=== PATIENT | female | born 1990 | race American Indian/Alaskan Native ===

== ENCOUNTER 2019-01-16 07:47 | Emergency (ER) | payer MEDICAID ==
[2019-01-16 08:00] VITALS: BP 122/60
--- NOTE | 2019-01-16 08:28 | Emergency Department Report ---
ED Female HPI - General Chief complaint: Urogenital-Female Stated complaint: POSSIBLE YEAST INFECTION Time Seen by Provider: 01/16/19 08:16 Source: patient, RN notes reviewed, old records reviewed Mode of arrival: Ambulatory Limitations: No Limitations - History of Present Illness Initial comments: This is a 28-year-old female. This patient is not known to this provider previously. She does not know if she is . She presents to the ER with a complaint of a few days vaginal discharge, itching and odor. She also endorses nausea but no vomiting. She has no physical pain. She reports 2 sexual partners in the past 6 months, one with condoms, 1 without condoms. In her best recollection, she's not had a sexually transmitted disease. She reports that she feels that she has a discharge, and that her undergarments have a strange discharge on them. MD Complaint: vaginal discharge -: Gradual Severity: mild Quality: other (itching) Consistency: constant Improves with: none Worsens with: none Associated Symptoms: vaginal discharge - Related Data Sexually active: Yes Home Medications Medication Instructions Recorded Confirmed Last Taken Pnv with Ca,No.72/Iron/FA 1 tab PO QDAY 07/14/14 07/14/14 07/11/14 [ Plus Tablet] 1 tablet Previous Rx's Medication Instructions Recorded Last Taken Type Metoclopramide [Reglan] 10 mg PO BID PRN #20 tab 07/08/18 Unknown Rx Nitrofurantoin [place]/M-Cryst 100 mg PO Q12HR #14 capsule 07/08/18 Unknown Rx [Macrobid CAP] 21/Iron Fu/Folic Acid 1 each PO DAILY #30 tablet 07/08/18 Unknown Rx [ Complete Caplet] Doxylamine Succinate/Vit B6 1 each PO QHS PRN #30 tablet. 01/16/19 Unknown Rx [Kirstie Dickerson 10-10 mg Tablet] Tania Root [Tania] 250 mg PO QID PRN #30 capsule 01/16/19 Unknown Rx Vit-Fe Fumar-FA [ 1 tab PO QDAY #30 tablet 01/16/19 Unknown Rx Vitamin] Allergies Allergy/AdvReac Type Severity Reaction Status Date / Time No Known Allergies Allergy Verified 07/08/18 09:44 ED Review of Systems ROS: Stated complaint: POSSIBLE YEAST INFECTION Other details as noted in HPI Constitutional: denies: fever Eyes: denies: eye discharge ENT: denies: congestion Respiratory: denies: wheezing Cardiovascular: denies: syncope Gastrointestinal: nausea Genitourinary: discharge. denies: urgency, dysuria, frequency, hematuria Musculoskeletal: denies: back pain Skin: denies: lesions Neurological: denies: weakness Hematological/Lymphatic: denies: easy bleeding ED Past Medical Hx - Past Medical History Previous Medical History?: No Hx Hypertension: No Hx Congestive Heart Failure: No Hx Diabetes: No Hx Deep Vein Thrombosis: No Hx Renal Disease: No Hx Sickle Cell Disease: No Hx Seizures: No Hx Asthma: No Hx COPD: No Hx HIV: No - Surgical History Past Surgical History?: No - Social History Smoking Status: Never Smoker Substance Use Type: None - Medications Home Medications: Home Medications Medication Instructions Recorded Confirmed Last Taken Type Pnv with Ca,No.72/Iron/FA 1 tab PO QDAY 07/14/14 07/14/14 07/11/14 History [ Plus Tablet] 1 tablet Metoclopramide [Reglan] 10 mg PO BID PRN #20 tab 07/08/18 Unknown Rx Nitrofurantoin [place]/M-Cryst 100 mg PO Q12HR #14 capsule 07/08/18 Unknown Rx [Macrobid CAP] 21/Iron Fu/Folic Acid 1 each PO DAILY #30 tablet 07/08/18 Unknown Rx [ Complete Caplet] Doxylamine Succinate/Vit B6 1 each PO QHS PRN #30 tablet. 01/16/19 Unknown Rx [Dicmarry Dickerson 10-10 mg Tablet] Tania Root [Tania] 250 mg PO QID PRN #30 capsule 01/16/19 Unknown Rx Vit-Fe Fumar-FA [ 1 tab PO QDAY #30 tablet 01/16/19 Unknown Rx Vitamin] ED Physical Exam - General Limitations: No Limitations General appearance: alert, in no apparent distress - Head Head exam: Present: atraumatic, normocephalic - Eye Eye exam: Present: normal appearance, EOMI. Absent: nystagmus - ENT ENT exam: Present: normal exam, normal orophraynx, mucous membranes moist, normal external ear exam - Neck Neck exam: Present: normal inspection, full ROM. Absent: tenderness, meningismus - Respiratory Respiratory exam: Present: normal lung sounds bilaterally. Absent: respiratory distress - Cardiovascular Cardiovascular Exam: Present: regular rate, normal rhythm, normal heart sounds. Absent: bradycardia, tachycardia, irregular rhythm, systolic murmur, diastolic murmur, rubs, gallop - GI/Abdominal GI/Abdominal exam: Present: soft. Absent: distended, tenderness, guarding, rebound, rigid, pulsatile mass - External exam: Present: normal external exam, other (chaperoned by ELIUD DORMAN) Speculum exam: Present: vaginal discharge, cervical discharge. Absent: erythema, tissue, laceration - Extremities Exam Extremities exam: Present: normal inspection, full ROM. Absent: pedal edema, joint swelling, calf tenderness - Back Exam Back exam: Present: normal inspection, full ROM. Absent: tenderness, CVA tenderness (R), CVA tenderness (L), paraspinal tenderness, vertebral tenderness - Neurological Exam Neurological exam: Present: alert, oriented X3, normal gait, other (there is no facial droop. The tongue is midline. Extraocular movements are intact bilaterally. Patient speaking in full complete sentences. Shoulder shrug is intact bilaterally. Hearing is grossly intact bilaterally. Visual acuity intact to finger counting and color perception at a close distance. 5/5 strength 4 extremities. Sensation intact to light touch in 4 extremities.). Absent: motor sensory deficit - Psychiatric Psychiatric exam: Present: normal affect, normal mood - Skin Skin exam: Present: warm, dry, intact, normal color. Absent: rash ED Course Vital Signs 01/16/19 07:57 Temperature 98.0 F Pulse Rate 67 Respiratory 16 Rate Blood Pressure 122/60 O2 Sat by Pulse 100 Oximetry - Reevaluation(s) Reevaluation #1: 01/16/19 09:32 Differential diagnosis, including but not limited to: Vaginitis, sexually transmitted infection, incidental Assessment and plan: 28-year-old female with primary complaint of copious vaginal discharge. On examination, there is copious green yellow vaginal discharge, suspicious for trichomoniasis. She has no abdominal pain, and no abdominal tenderness, however, screening urinalysis shows a positive test, therefore, confirmatory serologic testing will be obtained, in addition to a gynecologic ultrasound. We'll reassess after her data points have resulted. Reevaluation #2: 01/16/19 11:37 Ultrasound confirms early intrauterine , possibly twin gestation . Wet prep confirms trichomoniasis as suspected. Patient medicated empirically with azithromycin, ceftriaxone, and metronidazole. Patient counseled about significance of findings. She states that she will follow up with an [facility] doctor. ED Medical Decision Making - Lab Data Result diagrams: 01/16/19 09:40 Vital Signs 01/16/19 07:57 Temperature 98.0 F Pulse Rate 67 Respiratory 16 Rate Blood Pressure 122/60 O2 Sat by Pulse 100 Oximetry Lab Results 01/16/19 Range/Units 08:41 Urine Color Yellow (Yellow) Urine Turbidity Cloudy (Clear) Urine pH 5.0 (5.0-7.0) Ur Specific [place] 1.032 H (1.003-1.030) Urine Protein 30 mg/dl (Negative) mg/dL Urine Glucose (UA) Neg (Negative) mg/dL Urine Ketones Neg (Negative) mg/dL Urine Blood Sm (Negative) Urine Nitrite Neg (Negative) Urine Bilirubin Neg (Negative) Urine Urobilinogen 2.0 (<2.0) mg/dL Ur Leukocyte Esterase Lg (Negative) Urine WBC (Auto) 122.0 H (0.0-6.0) /HPF Urine RBC (Auto) 66.0 (0.0-6.0) /HPF U Epithel Cells (Auto) 12.0 (0-13.0) /HPF Urine Mucus 3+ /HPF Urine HCG, Qual Positive A (Negative) Vital Signs 01/16/19 07:57 Temperature 98.0 F Pulse Rate 67 Respiratory 16 Rate Blood Pressure 122/60 O2 Sat by Pulse 100 Oximetry Lab Results 01/16/19 01/16/19 01/16/19 Range/Units 08:41 09:40 09:40 WBC 6.9 (4.5-11.0) K/mm3 RBC 4.52 (3.65-5.03) M/mm3 Hgb 13.5 (10.1-14.3) gm/dl Hct 40.8 (30.3-42.9) % MCV 90 (79-97) fl MCH 30 (28-32) pg MCHC 33 (30-34) % RDW 14.2 (13.2-15.2) % Plt Count 249 (140-440) K/mm3 HCG, Quant 1412 H (0-4) mIU/mL Urine Color Yellow (Yellow) Urine Turbidity Cloudy (Clear) Urine pH 5.0 (5.0-7.0) Ur Specific [place] 1.032 H (1.003-1.030) Urine Protein 30 mg/dl (Negative) mg/dL Urine Glucose (UA) Neg (Negative) mg/dL Urine Ketones Neg (Negative) mg/dL Urine Blood Sm (Negative) Urine Nitrite Neg (Negative) Urine Bilirubin Neg (Negative) Urine Urobilinogen 2.0 (<2.0) mg/dL Ur Leukocyte Esterase Lg (Negative) Urine WBC (Auto) 122.0 H (0.0-6.0) /HPF Urine RBC (Auto) 66.0 (0.0-6.0) /HPF U Epithel Cells (Auto) 12.0 (0-13.0) /HPF Urine Mucus 3+ /HPF Urine HCG, Qual Positive A (Negative) Blood Type 01/16/19 Range/Units 09:40 WBC (4.5-11.0) K/mm3 RBC (3.65-5.03) M/mm3 Hgb (10.1-14.3) gm/dl Hct (30.3-42.9) % MCV (79-97) fl MCH (28-32) pg MCHC (30-34) % RDW (13.2-15.2) % Plt Count (140-440) K/mm3 HCG, Quant (0-4) mIU/mL Urine Color (Yellow) Urine Turbidity (Clear) Urine pH (5.0-7.0) Ur Specific [place] (1.003-1.030) Urine Protein (Negative) mg/dL Urine Glucose (UA) (Negative) mg/dL Urine Ketones (Negative) mg/dL Urine Blood (Negative) Urine Nitrite (Negative) Urine Bilirubin (Negative) Urine Urobilinogen (<2.0) mg/dL Ur Leukocyte Esterase (Negative) Urine WBC (Auto) (0.0-6.0) /HPF Urine RBC (Auto) (0.0-6.0) /HPF U Epithel Cells (Auto) (0-13.0) /HPF Urine Mucus /HPF Urine HCG, Qual (Negative) Blood Type O POSITIVE - Radiology Data Radiology results: pending, report reviewed, image reviewed Print Report Referring Physician: DORA BOWDEN Patient Name: MONIQUE LAMBERT Date of : 1990 Sex: Female Report Date: 2019-01-16 Report Status: Finalized Findings [facility] [address] [place] [address] Ultrasound Report Signed Patient: MONIQUE LAMBERT MR#: [id number] : 1990 Acct:[id number] Age/Sex: 28 / F ADM Date: 01/16/19 Loc: ED Attending Dr: Ordering Physician: DORA BOWDEN MD Date of Service: 01/16/19 Procedure(s): US OB <= 14 weeks fetus Accession Number(s): [id number] cc: DORA BOWDEN MD OB ultrasound FINDINGS: Endometrial stripe is thickened at 2 cm. There are 2 very small fluid collections within the endometrial cavity measuring 3 and 4 mm. These could be early gestational sacs. No yolk sac or pole yet seen. Left ovary is normal. Right ovary contains a 2.3 cm complex cyst. No free fluid. Signer Name: Ricky Moore MD Signed: 01/16/2019 11:24 AM Workstation Name: [id number] Transcribed By: DONNA Dictated By: Ricky Moore MD Electronically Authenticated By: Ricky Moore MD Signed Date/Time: 01/16/19 1124 Critical care attestation.: If time is entered above; I have spent that time in minutes in the direct care of this critically ill patient, excluding procedure time. ED Disposition Clinical Impression: Trichomonal vaginitis Qualifiers: Weeks of gestation: less than 8 weeks Qualified Code(s): Z3A.01 - Less than 8 weeks gestation of Disposition: DC-01 TO HOME OR SELFCARE Is pt being admited?: No Does the pt Need Aspirin: No Condition: Stable Instructions: (ED), Trichomoniasis (ED) Additional Instructions: Patient found to have vaginal trichomoniasis, which is a sexually transmitted disease. Do not consume alcohol, smoke cigarettes, and avoid secondhand exposure to tobacco, and smoke products. Cultures were sent today, and results will be available next 3-5 days. Please have your primary care doctor call the medical records department to obtain your culture results. I recommend outpatient testing for sexually transmitted diseases, including hepatitis, syphilis and HIV. I also recommend that you abstain from sexual activity until you have completed her antibiotic therapy, a physician states that it is safe for you to resume sexual activity, and any partners that you have been sexually active with have been tested/treated/evaluated for sexual transmitted diseases. Please follow-up with physician within 3-5 days. I recommend that you return to the ER right away with worsening pain, migration of pain, intractable nausea/vomiting, inability tolerate liquid feeds. Follow-up with an outpatient [facility] doctor as soon as possible to initiate outpatient care. Prescriptions: Doxylamine Succinate/Vit B6 [Kirstie Dickerson 10-10 mg Tablet] 1 each PO QHS PRN #30 tablet. PRN Reason: Nausea Tania Root [Tania] 250 mg PO QID PRN #30 capsule PRN Reason: Nausea Vit-Fe Fumar-FA [ Vitamin] 1 tab PO QDAY #30 tablet Referrals: [facility] [Provider Group] - 3-5 Days [facility] [Provider Group] - 3-5 Days [facility] [Provider Group] - 3-5 Days
[2019-01-16 09:05] LABS: Bilirubin,Urine NEG (Negative); Blood,Urine SM (Negative); Color,Urine Yellow (Yellow); Mucus,Urine 3+ /HPF
[2019-01-16 09:07] LABS: HCG Qualitative,Urine Positive (Negative)
[2019-01-16 09:57] LABS: Hematocrit 40.8 % (30.3-42.9); Hemoglobin 13.5 gm/dl (10.1-14.3); Mean Corpuscular HGB Conc 33 % (30-34); Mean Corpuscular Volume 90 fl (79-97); Platelet Count 249 K/mm3 (140-440); Red Blood Count 4.52 M/mm3 (3.65-5.03); Red Cell Distribution Width 14.2 % (13.2-15.2)
[2019-01-16] MEDS ORDERED: LIDOCAINE-MPF (1%) 10 MG/1 ML VIAL 5 ML INFILTRATI ONE (10:32)
[2019-01-16] MEDS ORDERED: metroNIDAZOLE 500 MG TAB PO STA (10:32)
[2019-01-16] MEDS ORDERED: AZITHROMYCIN 1 GM ORAL PWDR PACKET PO ONE (10:32)
[2019-01-16] MEDS ORDERED: ONDANSETRON 4 MG ODT TAB PO ONE (10:32)
--- NOTE | 2019-01-16 11:28 | Ultrasound Report ---
OB ultrasound FINDINGS: Endometrial stripe is thickened at 2 cm. There are 2 very small fluid collections within th e endometrial cavity measuring 3 and 4 mm. These could be early gestational sacs. No yolk sac or feta l pole yet seen. Left ovary is normal. Right ovary contains a 2.3 cm complex cyst. No free fluid. Signer Name: Ricky Moore MD Signed: 01/16/2019 11:24 AM Workstation Name: [id number]
--- NOTE | 2019-01-16 11:28 | Ultrasound Report ---
See prior report Signer Name: Ricky Moore MD Signed: 01/16/2019 11:24 AM Workstation Name: [id number]
== END 2019-01-16 11:53 | disposition home or self-care (01) ==
LOC: ED 07:47
DX: O98.311 Other infections with a predominantly sexual mode of transmission complicating pregnancy, first trimester (principal); Z3A.01 Less than 8 weeks gestation of pregnancy; Z79.899 Other long term (current) drug therapy
CPT/HCPCS: 36415; 76801; 76817; 81001; 81025; 84702; 85027; 86850; 86900; 86901; 87210; 87591; 96372; 99284; J0696; Q0162

== ENCOUNTER 2019-01-23 18:00 | Emergency (ER) | payer MEDICAID ==
[2019-01-23 18:09] VITALS: BP 108/60
--- NOTE | 2019-01-23 18:38 | Event Note ---
ED Screening Note ED Screening Note: pt is 5 weeks states she is having vaginal bleeding began 1 hour ago she does not have a [facility]OF[facility] abd cramping /P:2/A:1 This initial assessment/diagnostic orders/clinical plan/treatment(s) is/are subject to change based on patients health status, clinical progression and re- assessment by fellow clinical providers in the ED. Further treatment and workup at subsequent clinical providers discretion. Patient/guardian urged not to elope from the ED as their condition may be serious if not clinically assessed and managed. Initial orders include: labs, UA, OB US
[2019-01-23 19:51] LABS: Bilirubin,Urine NEG (Negative); Blood,Urine LG (Negative); Color,Urine Yellow (Yellow); Mucus,Urine 3+ /HPF
[2019-01-23 19:53] LABS: RBC,Urine > 182.0 /HPF (0.0-6.0)
--- NOTE | 2019-01-23 20:06 | Ultrasound Report ---
ULTRASOUND OBSTETRIC INDICATION: vaginal bleeding, 5 weeks . TECHNIQUE: Transabdominal and Transvaginal. COMPARISON: OB ultrasound from 01/16/2019. FINDINGS: The uterus is normal in size and appearance, measuring 8.1 x 4.1 x 4.3 cm with an endometrial thickne ss of 12 mm. No intrauterine is identified. The right ovary measures 2.8 x 1.8 x 2.1 cm and appears unremarkable with expected color flow. The le ft ovary is not seen. No distinct ectopic is identified. No free fluid is seen. IMPRESSION: No sonographic evidence of an intrauterine or ectopic . Signer Name: Nilesh Eldridge MD Signed: 01/23/2019 8:02 PM Workstation Name: [id number]
[2019-01-23 20:22] LABS: Basophils % (Auto) 0.2 % (0.0-1.8); Hematocrit 38.5 % (30.3-42.9); Hemoglobin 12.7 gm/dl (10.1-14.3); Lymphocytes % (Auto) 8.7 % (13.4-35.0); Mean Corpuscular HGB Conc 33 % (30-34); Mean Corpuscular Volume 89 fl (79-97); Monocytes # (Auto) 0.4 K/mm3 (0.0-0.8); Monocytes % (Auto) 3.1 % (0.0-7.3); Platelet Count 263 K/mm3 (140-440); Red Blood Count 4.31 M/mm3 (3.65-5.03); Red Cell Distribution Width 14.3 % (13.2-15.2)
--- NOTE | 2019-01-23 20:38 | Emergency Department Report ---
ED General Adult HPI - General Chief complaint: Vaginal Bleeding Stated complaint: 5 WKS W/BLEEDING Time Seen by Provider: 01/23/19 18:36 Source: patient Mode of arrival: Ambulatory Limitations: No Limitations - History of Present Illness Initial comments: 29-year-old -Maced[place] female patient complains of sudden onset of vaginal bleeding and lower abdominal cramping this morning. She states she is about 5 weeks , however has not seen an [facility] to this point. She is . She denies any urinary symptoms. She states she has gone through about 4 pads today, but the bleeding has significantly slowed over the past few hours. She rates her pain as a 3/10 in severity and describes it as a cramping type pain. She has history of one prior miscarriage. Denies any nausea/vomiting, vaginal discharge, stool changes, fever, or other complaints/concerns. -: Sudden Worsens with: none Associated Symptoms: denies other symptoms - Related Data Home Medications Medication Instructions Recorded Confirmed Last Taken Pnv with Ca,No.72/Iron/FA 1 tab PO QDAY 07/14/14 07/14/14 07/11/14 [ Plus Tablet] 1 tablet Previous Rx's Medication Instructions Recorded Last Taken Type Metoclopramide [Reglan] 10 mg PO BID PRN #20 tab 07/08/18 Unknown Rx Nitrofurantoin [place]/M-Cryst 100 mg PO Q12HR #14 capsule 07/08/18 Unknown Rx [Macrobid CAP] 21/Iron Fu/Folic Acid 1 each PO DAILY #30 tablet 07/08/18 Unknown Rx [ Complete Caplet] Doxylamine Succinate/Vit B6 1 each PO QHS PRN #30 tablet. 01/16/19 Unknown Rx [Kirstie Dickerson 10-10 mg Tablet] Tania Root [Tania] 250 mg PO QID PRN #30 capsule 01/16/19 Unknown Rx Vit-Fe Fumar-FA [ 1 tab PO QDAY #30 tablet 01/16/19 Unknown Rx Vitamin] Allergies Allergy/AdvReac Type Severity Reaction Status Date / Time No Known Allergies Allergy Verified 07/08/18 09:44 ED Review of Systems ROS: Stated complaint: 5 WKS W/BLEEDING Other details as noted in HPI Comment: All other systems reviewed and negative Gastrointestinal: as per HPI Genitourinary: as per HPI ED Past Medical Hx - Past Medical History Hx Hypertension: No Hx Congestive Heart Failure: No Hx Diabetes: No Hx Deep Vein Thrombosis: No Hx Renal Disease: No Hx Sickle Cell Disease: No Hx Seizures: No Hx Asthma: No Hx COPD: No Hx HIV: No - Surgical History Past Surgical History?: No - Social History Smoking Status: Former Smoker Substance Use Type: Marijuana - Medications Home Medications: Home Medications Medication Instructions Recorded Confirmed Last Taken Type Pnv with Ca,No.72/Iron/FA 1 tab PO QDAY 07/14/14 07/14/14 07/11/14 History [ Plus Tablet] 1 tablet Metoclopramide [Reglan] 10 mg PO BID PRN #20 tab 07/08/18 Unknown Rx Nitrofurantoin [place]/M-Cryst 100 mg PO Q12HR #14 capsule 07/08/18 Unknown Rx [Macrobid CAP] 21/Iron Fu/Folic Acid 1 each PO DAILY #30 tablet 07/08/18 Unknown Rx [ Complete Caplet] Doxylamine Succinate/Vit B6 1 each PO QHS PRN #30 tablet. 01/16/19 Unknown Rx [Diclegis Dr 10-10 mg Tablet] Tania Root [Tania] 250 mg PO QID PRN #30 capsule 01/16/19 Unknown Rx Vit-Fe Fumar-FA [ 1 tab PO QDAY #30 tablet 01/16/19 Unknown Rx Vitamin] ED Physical Exam - General Limitations: No Limitations General appearance: alert, in no apparent distress - Head Head exam: Present: atraumatic, normocephalic - Eye Eye exam: Present: normal appearance - ENT ENT exam: Present: mucous membranes moist - Neck Neck exam: Present: normal inspection - Respiratory Respiratory exam: Present: normal lung sounds bilaterally, respiratory distress - Cardiovascular Cardiovascular Exam: Present: regular rate, normal rhythm - GI/Abdominal GI/Abdominal exam: Present: soft, normal bowel sounds. Absent: distended, tenderness, guarding, rigid - Extremities Exam Extremities exam: Present: normal inspection - Neurological Exam Neurological exam: Present: alert, oriented X3 - Psychiatric Psychiatric exam: Present: normal affect, normal mood - Skin Skin exam: Present: warm, dry, intact, normal color. Absent: rash ED Course Vital Signs 01/23/19 18:06 Temperature 98.7 F Pulse Rate 87 Respiratory 19 Rate Blood Pressure 108/60 O2 Sat by Pulse 97 Oximetry ED Medical Decision Making - Lab Data Result diagrams: 01/23/19 20:05 Lab Results 01/23/19 01/23/19 01/23/19 Range/Units 19:38 20:05 20:05 WBC 11.6 H (4.5-11.0) K/mm3 RBC 4.31 (3.65-5.03) M/mm3 Hgb 12.7 (10.1-14.3) gm/dl Hct 38.5 (30.3-42.9) % MCV 89 (79-97) fl MCH 30 (28-32) pg MCHC 33 (30-34) % RDW 14.3 (13.2-15.2) % Plt Count 263 (140-440) K/mm3 Lymph % (Auto) 8.7 L (13.4-35.0) % [place] % (Auto) 3.1 (0.0-7.3) % Eos % (Auto) 0.0 (0.0-4.3) % Baso % (Auto) 0.2 (0.0-1.8) % Lymph # 1.0 L (1.2-5.4) K/mm3 [place] # 0.4 (0.0-0.8) K/mm3 Eos # 0.0 (0.0-0.4) K/mm3 Baso # 0.0 (0.0-0.1) K/mm3 Seg Neutrophils % 88.0 H (40.0-70.0) % Seg Neutrophils # 10.2 H (1.8-7.7) K/mm3 HCG, Quant 2460 H (0-4) mIU/mL Urine Color Yellow (Yellow) Urine Turbidity Cloudy (Clear) Urine pH 6.0 (5.0-7.0) Ur Specific [place] 1.029 (1.003-1.030) Urine Protein 30 mg/dl (Negative) mg/dL Urine Glucose (UA) Neg (Negative) mg/dL Urine Ketones Tr (Negative) mg/dL Urine Blood Lg (Negative) Urine Nitrite Neg (Negative) Urine Bilirubin Neg (Negative) Urine Urobilinogen 4.0 (<2.0) mg/dL Ur Leukocyte Esterase Neg (Negative) Urine WBC (Auto) 8.0 H (0.0-6.0) /HPF Urine RBC (Auto) > 182.0 (0.0-6.0) /HPF U Epithel Cells (Auto) 5.0 (0-13.0) /HPF Urine Mucus 3+ /HPF Blood Type 01/23/19 Range/Units 20:05 WBC (4.5-11.0) K/mm3 RBC (3.65-5.03) M/mm3 Hgb (10.1-14.3) gm/dl Hct (30.3-42.9) % MCV (79-97) fl MCH (28-32) pg MCHC (30-34) % RDW (13.2-15.2) % Plt Count (140-440) K/mm3 Lymph % (Auto) (13.4-35.0) % [place] % (Auto) (0.0-7.3) % Eos % (Auto) (0.0-4.3) % Baso % (Auto) (0.0-1.8) % Lymph # (1.2-5.4) K/mm3 [place] # (0.0-0.8) K/mm3 Eos # (0.0-0.4) K/mm3 Baso # (0.0-0.1) K/mm3 Seg Neutrophils % (40.0-70.0) % Seg Neutrophils # (1.8-7.7) K/mm3 HCG, Quant (0-4) mIU/mL Urine Color (Yellow) Urine Turbidity (Clear) Urine pH (5.0-7.0) Ur Specific [place] (1.003-1.030) Urine Protein (Negative) mg/dL Urine Glucose (UA) (Negative) mg/dL Urine Ketones (Negative) mg/dL Urine Blood (Negative) Urine Nitrite (Negative) Urine Bilirubin (Negative) Urine Urobilinogen (<2.0) mg/dL Ur Leukocyte Esterase (Negative) Urine WBC (Auto) (0.0-6.0) /HPF Urine RBC (Auto) (0.0-6.0) /HPF U Epithel Cells (Auto) (0-13.0) /HPF Urine Mucus /HPF Blood Type O POSITIVE - Radiology Data Radiology results: report reviewed ULTRASOUND OBSTETRIC INDICATION: vaginal bleeding, 5 weeks . TECHNIQUE: Transabdominal and Transvaginal. COMPARISON: OB ultrasound from 01/16/2019. FINDINGS: The uterus is normal in size and appearance, measuring 8.1 x 4.1 x 4.3 cm with an endometrial thickness of 12 mm. No intrauterine is identified. The right ovary measures 2.8 x 1.8 x 2.1 cm and appears unremarkable with expected color flow. The left ovary is not seen. No distinct ectopic is identified. No free fluid is seen. IMPRESSION: No sonographic evidence of an intrauterine or ectopic . - Medical Decision Making 72-year-old female patient who suspects 5 weeks of presents for sudden onset of vaginal bleeding this morning. Bleeding is significantly slowed since its onset. She does admit to passing large clots. Her pain is currently well controlled. Ultrasound does not show evidence of intrauterine or ectopic . Beta hCG levels are about 2400. Vital signs are WNL. Patient recommended to follow up with [facility]ISTOR [facility]ER in 2 days for repeat beta hCG levels. Patient to return to emergency department if she experiences increased pain, increased bleeding, or other new/worsening symptom-patient states understanding. Critical care attestation.: If time is entered above; I have spent that time in minutes in the direct care of this critically ill patient, excluding procedure time. ED Disposition Clinical Impression: Threatened miscarriage in early Disposition: DC-01 TO HOME OR SELFCARE Is pt being admited?: No Does the pt Need Aspirin: No Condition: Stable Instructions: Threatened Miscarriage (ED) Referrals: CLAY MARROQUIN MD [Staff Physician] - [facility]
[2019-01-23] MEDS ORDERED: ACETAMINOPHEN 500 MG TAB PO ONE (21:49)
== END 2019-01-23 22:30 | disposition home or self-care (01) ==
LOC: ED 18:00
DX: O20.0 Threatened abortion (principal); F12.10 Cannabis abuse, uncomplicated; Z87.891 Personal history of nicotine dependence; Z79.899 Other long term (current) drug therapy; Z3A.01 Less than 8 weeks gestation of pregnancy
CPT/HCPCS: 36415; 76801; 76817; 81001; 84702; 85025; 86900; 86901

== ENCOUNTER 2020-11-18 14:39 | Emergency (ER) | payer MEDICAID ==
[2020-11-18 14:50] VITALS: BP 108/61
--- NOTE | 2020-11-18 15:30 | Emergency Department Report ---
Vomiting/Diarrhea - HPI Chief Complaint: Nausea/Vomiting/Diarrhea Stated Complaint: NAUSEA HEADACHE 3MO Time Seen by Provider: 11/18/20 15:09 Duration: weeks Nausea/Vomiting Severity: Mild Diarrhea Severity: None Pain Severity: None Symptoms: Yes Able to Tolerate Fluids, No Watery Diarrhea, No Bloody diarrhea, No Fever, No Hematuria Other History: The patient was evaluated in the emergency department for symptoms described in the history of present illness. He/she was evaluated in the context of the global COVID-19 pandemic, which necessitated consideration that the patient might be at risk for infection with the virus that causes COVID-19. Institutional protocols and algorithms that pertain to the evaluation of patients at risk for COVID-19 are in a state of rapid change based on information released by regulatory bodies including the CDC and federal and state organizations. These policies and algorithms were followed during the patient's care in the emergency department. Please note that these policies, procedures and recommendations changed on a rapid basis. 30-year-old - Indonesian female presents to the emergency room nausea and vomiting and tiredness. Patient states she is approximately 3 months . Patient states she saw her USER EXPERIENCE ANALYST [facility] couple days ago they gave her prescription for nausea medication. Patient states that she does not pick medication up. Patient also complains of headaches and has taken Tylenol. Patient endorsed to me that she has no vaginal discharge or bleeding and she just feels that she needs a few days off antinausea medicine that she can afford. 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 She denies any abdominal pain no vaginal bleeding no vaginal discharge no abdominal pain or pelvic pain. Denies any fever chills. She is vaccinated. ED Review of Systems ROS: Stated complaint: NAUSEA HEADACHE 3MO Other details as noted in HPI Comment: All other systems reviewed and negative ED Past Medical Hx - Past Medical History Previous Medical History?: Yes Hx Hypertension: No Hx Congestive Heart Failure: No Hx Diabetes: No Hx Deep Vein Thrombosis: No Hx Renal Disease: No Hx Sickle Cell Disease: No Hx Seizures: No Hx Asthma: No Hx COPD: No Hx HIV: No - Surgical History Past Surgical History?: No - Social History Smoking Status: Former Smoker Substance Use Type: Marijuana - Medications Home Medications: Home Medications Medication Instructions Recorded Confirmed Last Taken Type Pnv with Ca,No.72/Iron/FA 1 tab PO QDAY 07/14/14 07/14/14 07/11/14 History [ Plus Tablet] 1 tablet Metoclopramide [Reglan] 10 mg PO BID PRN #20 tab 07/08/18 Unknown Rx Nitrofurantoin [place]/M-Cryst 100 mg PO Q12HR #14 capsule 07/08/18 Unknown Rx [Macrobid CAP] 21/Iron Fu/Folic Acid 1 each PO DAILY #30 tablet 07/08/18 Unknown Rx [ Complete Caplet] Doxylamine Succinate/Vit B6 1 each PO QHS PRN #30 tablet. 01/16/19 Unknown Rx [Diclegis Dr 10-10 mg Tablet] Tania Root [Tania] 250 mg PO QID PRN #30 capsule 01/16/19 Unknown Rx Vit-Fe Fumar-FA [ 1 tab PO QDAY #30 tablet 01/16/19 Unknown Rx Vitamin] Doxylamine Succinate [Unisom] 25 mg PO BID PRN #30 tablet 11/18/20 Unknown Rx Tania Root [Tania] 250 mg PO QID PRN #40 capsule 11/18/20 Unknown Rx Pyridoxine [Vitamin B-6 50MG TAB] 50 mg PO DAILY #30 tab 11/18/20 Unknown Rx Vomiting Diarrhea Exam - Exam General: Vital signs noted. No distress. Alert and acting appropriately. HEENT: Yes Moist Mucous Membranes, No Pharyngeal Erythema, No Pharyngeal Exudates, No Rhinorrhea, No Conjuctival Injection, No Frontal Tenderness, No Maxillary Tenderness Neck: No Adenopathy, No Rigidity Lungs: Yes Clear Lung Sounds, Yes Good Air Exchange, No Wheezes, No Stridor, No Cough, No Nasal Flaring, No Retractions, No Use of Accessory Muscles Heart exam: Regular: Yes, Murmur: No, Tachycardia: No Abdomen: Tenderness: No, Peritoneal Signs: No, Distention: No, Hyperactive Bowel sounds: No Skin exam: Rash: No, Edema: No, Normal turgor: Yes Neurologic: Alert and oriented, no deficits. Musculoskeletal: Unremarkable. ED Course Vital Signs 11/18/20 14:48 Temperature 98 F Pulse Rate 74 Respiratory 16 Rate Blood Pressure 108/61 [Left] O2 Sat by Pulse 97 Oximetry ED Medical Decision Making - Medical Decision Making 30-year-old -Indonesian female presents to the emergency room nausea and vomiting and tiredness. Patient states she is approximately 3 months . Patient states she saw her [facility]PERIENCE [facility] couple days ago they gave her prescription for nausea medication. Patient states that she does not pick medication up. Patient also complains of headaches and has taken Tylenol. Patient endorsed to me that she has no vaginal discharge or bleeding and she just feels that she needs a few days off antinausea medicine that she can afford. 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 She denies any abdominal pain no vaginal bleeding no vaginal discharge no abdominal pain or pelvic pain. Denies any fever chills. She is vaccinated. Patient has stable vital signs no abdominal pain vaginal discharge or vaginal bleeding. Discussed with patient I recommend taking [id number] Unisom, vitamin B6 and tania root for nausea. I discussed with patient she can take Tylenol 1 g every 6 hours as needed for headache. Also discussed the patient needs to increase her fluid intake and advance her diet as tolerated. Patient understands that she needs to follow back up with [facility] and next 3 to 4 days. Critical care attestation.: If time is entered above; I have spent that time in minutes in the direct care of this critically ill patient, excluding procedure time. ED Disposition Clinical Impression: Nausea and vomiting during prior to 22 weeks gestation Disposition: HOME / SELF CARE / HOMELESS Is pt being admited?: No Does the pt Need Aspirin: No Condition: Stable Instructions: Hyperemesis Gravidarum, Morning Sickness Additional Instructions: Please take medication as prescribed and as needed. You can take Tylenol 1 g every 6 hours as needed for headache. Is important to increase your fluid intake and advance your diet as tolerated. Is also important you good good rest and sleep. Follow-up with your USER EXPERIENCE ANALYST in the next 3 to 5 days. Prescriptions: Tania Root [Tania] 250 mg PO QID PRN #40 capsule PRN Reason: Nausea And Vomiting Doxylamine Succinate [Unisom] 25 mg PO BID PRN #30 tablet PRN Reason: Nausea And Vomiting Pyridoxine [Vitamin B-6 50MG TAB] 50 mg PO DAILY #30 tab Referrals: [facility] [Provider Group] - 3-5 Days Forms: Work/School Release Form(ED) Time of Disposition: 15:31
== END 2020-11-18 15:51 | disposition home or self-care (01) ==
LOC: ED 14:39
DX: O21.9 Vomiting of pregnancy, unspecified (principal); O26.891 Other specified pregnancy related conditions, first trimester; R51.9 Headache, unspecified; Z3A.12 12 weeks gestation of pregnancy; Z87.891 Personal history of nicotine dependence
CPT/HCPCS: 99282

== ENCOUNTER 2021-01-28 23:16 | Outpatient (CLI) | payer MEDICAID ==
[2021-01-28 23:40] VITALS: BP 122/66
[2021-01-28] MEDS ORDERED: LACTATED RINGERS 1,000 ML IV ONE (23:54)
[2021-01-29 01:56] LABS: Bacteria,Urine 1+ /HPF (Negative); Bilirubin,Urine NEG (Negative); Blood,Urine NEG (Negative); Color,Urine Yellow (Yellow); Mucus,Urine 1+ /HPF
[2021-01-29] MEDS ORDERED: LIDOCAINE-MPF (1%) 10 MG/1 ML VIAL 5 ML INFILTRATI ONE (03:22)
== END 2021-01-29 03:19 | disposition home or self-care (01) ==
LOC: TRG 23:16 → APU 23:17 → TRG 01-29 03:19
PROVIDERS: ATTEND Obstetrics & Gynecology
DX: O26.892 Other specified pregnancy related conditions, second trimester (principal); R10.9 Unspecified abdominal pain; Z3A.21 21 weeks gestation of pregnancy
CPT/HCPCS: 59025; 81001; 87086; 96372; J0696; J3490

== ENCOUNTER 2021-02-20 17:59 | Outpatient (CLI) | payer MEDICAID ==
[2021-02-20 19:10] VITALS: BP 107/55
[2021-02-20] MEDS ORDERED: LACTATED RINGERS 500 ML IV ONE (19:55)
[2021-02-20] MEDS ORDERED: ONDANSETRON 4 MG/2 ML INJ IM ONE (20:00)
== END 2021-02-20 19:56 | disposition home or self-care (01) ==
LOC: TRG 17:59 → APU 18:01 → TRG 19:56
PROVIDERS: ATTEND Obstetrics & Gynecology
DX: O26.892 Other specified pregnancy related conditions, second trimester (principal); R10.30 Lower abdominal pain, unspecified; W19.XXXA Unspecified fall, initial encounter; O23.42 Unspecified infection of urinary tract in pregnancy, second trimester; N39.0 Urinary tract infection, site not specified; O99.332 Smoking (tobacco) complicating pregnancy, second trimester; F17.200 Nicotine dependence, unspecified, uncomplicated; Z3A.25 25 weeks gestation of pregnancy; Y93.89 Activity, other specified; Y92.89 Other specified places as the place of occurrence of the external cause; Y99.8 Other external cause status
CPT/HCPCS: 59025; 96372; J2405

== ENCOUNTER 2021-02-27 10:10 | Outpatient (CLI) | payer MEDICAID ==
[2021-02-27] MEDS ORDERED: LACTATED RINGERS 1,000 ML IV ONE (11:32)
[2021-02-27 11:55] LABS: Bilirubin,Urine NEG (Negative); Blood,Urine NEG (Negative); Color,Urine Amber (Yellow); Mucus,Urine 3+ /HPF
[2021-02-27 12:44] VITALS: BP 111/61
--- NOTE | 2021-02-27 15:02 | Ultrasound Report ---
ULTRASOUND OBSTETRIC LIMITED ULTRASOUND BIOPHYSICAL PROFILE INDICATION / CLINICAL INFORMATION: well being. Clinical Gestational Age (GA) in weeks, days: 26, 1 TECHNIQUE: Transabdominal. COMPARISON: None available. FINDINGS: BREATHING MOVEMENT = 2 GROSS BODY MOVEMENT = 2 TONE = 2 QUALITATIVE AMNIOTIC FLUID VOLUME = 2 TOTAL BIOPHYSICAL SCORE = 8/8 HEART RATE (beats per minute): 152 AMNIOTIC FLUID INDEX (cm) = 18.1 (normal = 7-24 cm) PRESENTATION: Cephalic. ADDITIONAL FINDINGS: None. IMPRESSION: 1. Biophysical Score = 8/8 . 2. No evidence of placental abruption. Signer Name: González Delvalle MD Signed: 02/27/2021 2:59 PM Workstation Name: [id number]
== END 2021-02-27 15:33 | disposition home or self-care (01) ==
LOC: TRG 10:10 → APU 10:11 → TRG 15:33
PROVIDERS: ATTEND Obstetrics & Gynecology
DX: Z34.92 Encounter for supervision of normal pregnancy, unspecified, second trimester (principal); Z3A.26 26 weeks gestation of pregnancy
CPT/HCPCS: 59025; 76815; 76819; 81001

== ENCOUNTER 2021-03-24 04:34 | Outpatient (CLI) | payer MEDICAID ==
[2021-03-24] MEDS ORDERED: LACTATED RINGERS 1,000 ML ONE (04:59)
[2021-03-24] MEDS ORDERED: LACTATED RINGERS 500 ML IV ONE (05:04)
[2021-03-24 05:13] VITALS: BP 108/63
[2021-03-24 07:17] LABS: Bacteria,Urine 2+ /HPF (Negative); Bilirubin,Urine NEG (Negative); Blood,Urine NEG (Negative); Color,Urine Amber (Yellow); Mucus,Urine 3+ /HPF
== END 2021-03-24 07:53 | disposition home or self-care (01) ==
LOC: TRG 04:34 → APU 04:35 → TRG 07:53
PROVIDERS: ATTEND Obstetrics & Gynecology
DX: O26.853 Spotting complicating pregnancy, third trimester (principal); O26.893 Other specified pregnancy related conditions, third trimester; E86.0 Dehydration; O23.43 Unspecified infection of urinary tract in pregnancy, third trimester; N39.0 Urinary tract infection, site not specified; Z3A.29 29 weeks gestation of pregnancy
CPT/HCPCS: 59025; 81001; 87086; 96360

== ENCOUNTER 2021-04-18 08:06 | Outpatient (CLI) | payer MEDICAID ==
[2021-04-18 08:18] VITALS: BP 129/74
[2021-04-18] MEDS ORDERED: LACTATED RINGERS 1,000 ML IV ONE (09:00)
[2021-04-18 09:49] LABS: Amorphous Crystals,Urine 2+; Bacteria,Urine 1+ /HPF (Negative); Mucus,Urine 2+ /HPF
[2021-04-18 09:54] LABS: Color,Urine Yellow (Yellow)
[2021-04-18 09:55] LABS: Blood,Urine Small (Negative)
== END 2021-04-18 10:46 | disposition home or self-care (01) ==
LOC: TRG 08:06 → APU 08:07 → TRG 09:26
PROVIDERS: ATTEND Obstetrics & Gynecology
DX: O47.03 False labor before 37 completed weeks of gestation, third trimester (principal); O42.913 Preterm premature rupture of membranes, unspecified as to length of time between rupture and onset of labor, third trimester; Z3A.33 33 weeks gestation of pregnancy
CPT/HCPCS: 36415; 59025; 81001; 84112; 87086

== ENCOUNTER 2021-05-31 20:58 | Outpatient (CLI) | payer MEDICAID ==
[2021-05-31 21:41] VITALS: BP 128/68
== END 2021-05-31 22:21 | disposition home or self-care (01) ==
LOC: TRG 20:58 → APU 20:59 → TRG 22:21
PROVIDERS: ATTEND Obstetrics & Gynecology
DX: O42.92 Full-term premature rupture of membranes, unspecified as to length of time between rupture and onset of labor (principal); Z3A.39 39 weeks gestation of pregnancy
CPT/HCPCS: 36415; 59025; 84112

== ENCOUNTER 2021-06-07 10:51 | Outpatient (CLI) | payer MEDICAID ==
--- NOTE | 2021-06-07 12:20 | Ultrasound Report ---
ULTRASOUND OBSTETRIC LIMITED ULTRASOUND BIOPHYSICAL PROFILE INDICATION / CLINICAL INFORMATION: NON-REASSURING NST IN OFFICE - KAREN. Clinical Gestational Age (GA) in weeks, days: 40, 3 TECHNIQUE: Transabdominal. COMPARISON: None available. FINDINGS: BREATHING MOVEMENT = 0 GROSS BODY MOVEMENT = 2 TONE = 2 QUALITATIVE AMNIOTIC FLUID VOLUME = 2 TOTAL BIOPHYSICAL SCORE = 6/8 HEART RATE (beats per minute): 138 AMNIOTIC FLUID INDEX (cm) = 18.6 (normal = 7-24 cm) PRESENTATION: Cephalic. ADDITIONAL FINDINGS: Placenta is posteriorly located. IMPRESSION: 1. Biophysical Score = 6/8 2. Normal KAREN. 3. Presentation cephalic. Signer Name: González Delvalle MD Signed: 06/07/2021 12:15 PM Workstation Name: [email or web address]
[2021-06-07] MEDS ORDERED: ACETAMINOPHEN 325 MG TAB PO PRN (22:34)
[2021-06-08 04:01] LABS: Hemoglobin 11.1 gm/dl (10.1-14.3); Mean Corpuscular HGB Conc 32 % (30-34); Mean Corpuscular Volume 79 fl (79-97); Platelet Count 208 K/mm3 (140-440); Red Blood Count 4.43 M/mm3 (3.65-5.03); Red Cell Distribution Width 16.6 % (13.2-15.2)
[2021-06-08 07:11] VITALS: BP 106/65
--- NOTE | 2021-06-08 09:14 | Ultrasound Report ---
US OB limited, US OB BPP wo non-stress INDICATION: karen. TECHNIQUE: Transabdominal. COMPARISON: June 07, 2021 FINDINGS: There is a single intrauterine . Heart Rate: 137 beats per minute. Position: cephalic. Amniotic Fluid Volume: normal Amniotic Fluid Index (KAREN) in cm (if calculated): 16.4. Biophysical Profile: breathing movements: 2 movements:2 posture and tone:2 Qualitative amniotic fluid volume: 2 IMPRESSION: 1. Biophysical profile is 8 of 8. Amniotic fluid is normal. Signer Name: Yosef Sheth MD Signed: 06/08/2021 9:10 AM Workstation Name: [email or web address]
--- NOTE | 2021-06-08 09:17 | Short Stay Summary ---
Short Stay Documentation Date of service: 06/08/21 Narrative H&P: 31-year-old -0-0-2 at 40+2 weeks who presents with a nonreactive NST. The patient was evaluated on labor and delivery with findings of a biophysical profile of 6 out of 8. She was admitted for further observation. - History Principal diagnosis: at term Past Medical History: No medical history Past Surgical History: No surgical history Social history: single - Allergies and Medications Current Medications: Allergies No Known Allergies Allergy (Verified 07/08/18 09:44) Home Medications Medication Instructions Recorded Confirmed Last Taken Type Pnv with Ca,No.72/Iron/FA 1 tab PO QDAY 07/14/14 07/14/14 07/11/14 History [ Plus Tablet] 1 tablet Metoclopramide [Reglan] 10 mg PO BID PRN #20 tab 07/08/18 Unknown Rx Nitrofurantoin [place]/M-Cryst 100 mg PO Q12HR #14 capsule 07/08/18 Unknown Rx [Macrobid CAP] 21/Iron Fu/Folic Acid 1 each PO DAILY #30 tablet 07/08/18 Unknown Rx [ Complete Caplet] Doxylamine Succinate/Vit B6 1 each PO QHS PRN #30 tablet. 01/16/19 Unknown Rx [Kirstie Dickerson 10-10 mg Tablet] Tania Root [Tania] 250 mg PO QID PRN #30 capsule 01/16/19 Unknown Rx Vit-Fe Fumar-FA [ 1 tab PO QDAY #30 tablet 01/16/19 Unknown Rx Vitamin] Doxylamine Succinate [Unisom] 25 mg PO BID PRN #30 tablet 11/18/20 Unknown Rx Tania Root [Tania] 250 mg PO QID PRN #40 capsule 11/18/20 Unknown Rx Pyridoxine [Vitamin B-6 50MG TAB] 50 mg PO DAILY #30 tab 11/18/20 Unknown Rx Active Medications Acetaminophen (Acetaminophen 325 Mg Tab) 650 mg PO Q6H PRN PRN Reason: Pain, Mild (1-3) - Physical exam General appearance: no acute distress Integumentary: no rash HEENT: Atraumatic Lungs: Clear to auscultation Breasts: deferred - Hospital course Hospital course: The patient was admitted with findings of a biophysical profile of 6 out of 8. She was admitted overnight for observation with a reactive category 1 tracing. The biophysical profile was repeated the following day with an adequate KAREN of 16 cm and a biophysical profile of 8 out of 8. The patient denied any contractions and her cervix was only 1 cm at presentation. She was discharged home with kick counts and scheduled for an induction in the upcoming week. - Disposition Condition at discharge: Good Disposition: 01 HOME / SELF CARE / HOMELESS Short Stay Discharge Plan Activity: no restrictions Diet: regular Additional Instructions: Schedule routine OB appointment at [facility]'s this week
== END 2021-06-08 09:46 | disposition home or self-care (01) ==
LOC: TRG 10:51 → APU 10:53 → LD 06-08 02:22 → TRG 06-08 09:46
PROVIDERS: ATTEND Obstetrics & Gynecology
DX: Z34.93 Encounter for supervision of normal pregnancy, unspecified, third trimester (principal); Z3A.40 40 weeks gestation of pregnancy
CPT/HCPCS: 36415; 76815; 76819; 85027; 86592; 86593; 86780; 86850; 86900; 86901

== ENCOUNTER 2021-06-14 12:16 | Inpatient (IN) | payer MEDICAID ==
[2021-06-14] MEDS ORDERED: AMPICILLIN/NS 2 GM/100 ML 2 GM/100 ML BAG IV ONE (13:17)
[2021-06-14] MEDS ORDERED: TERBUTALINE 1 MG/1 ML INJ SUB-Q PRN (13:17)
[2021-06-14] MEDS ORDERED: fentaNYL 100 MCG/2 ML INJ IV PRN (13:17)
[2021-06-14] MEDS ORDERED: CARBOPROST TROMETHAMINE 250 MCG/1 ML INJ IM PRN (13:17)
[2021-06-14] MEDS ORDERED: ACETAMINOPHEN 325 MG TAB PO PRN (13:17)
[2021-06-14] MEDS ORDERED: LOPERAMIDE 2 MG CAP PO PRN (13:17)
[2021-06-14] MEDS ORDERED: BUTORPHANOL 2 MG/1 ML INJ IV PRN (13:17)
[2021-06-14] MEDS ORDERED: ONDANSETRON 4 MG/2 ML INJ IV PRN (13:17)
[2021-06-14] MEDS ORDERED: METHYLERGONOVINE MALEATE 0.2 MG/ML VIAL IM PRN (13:17)
[2021-06-14] MEDS ORDERED: ePHEDrine SULFATE 50 MG/1 ML INJ IV PRN (13:17)
[2021-06-14] MEDS ORDERED: MINERAL OIL 30 ML ORAL LIQD PO PRN (13:17)
[2021-06-14] MEDS ORDERED: NalbUPHINE 10 MG/1 ML INJ IV PRN (13:17)
[2021-06-14] MEDS ORDERED: OXYTOCIN 10 UNIT/1 ML INJ IM PRN (13:17)
[2021-06-14] MEDS ORDERED: miSOPROStol 200 MCG TAB PR PRN (13:17)
[2021-06-14] MEDS ORDERED: LIDOCAINE (2%) 20 MG/1 ML VIAL 20 ML MDV INFILTRATI ONE (13:17)
[2021-06-14] MEDS ORDERED: OXYTOCIN DRIP 30 UNITS/500 ML BAG IV SCH (14:00)
[2021-06-14 14:04] LABS: Hematocrit 33.5 % (30.3-42.9); Hemoglobin 11.1 gm/dl (10.1-14.3); Mean Corpuscular HGB Conc 33 % (30-34); Mean Corpuscular Volume 79 fl (79-97); Platelet Count 209 K/mm3 (140-440); Red Blood Count 4.26 M/mm3 (3.65-5.03); Red Cell Distribution Width 16.7 % (13.2-15.2)
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
[2021-06-14] MEDS ORDERED: FLUCONAZOLE 100 MG TAB PO SCH (15:00)
[2021-06-14] MEDS ORDERED: DINOPROSTONE 10 MG VAG SUPP VG PRN (16:01)
[2021-06-14] MEDS: LACTATED RINGERS 1,000 ML IV SCH (16:57)
[2021-06-14] MEDS ORDERED: AMPICILLIN/NS 1 GM/50 ML 1 GM/50 ML BAG IV SCH (18:00)
[2021-06-15] MEDS: LACTATED RINGERS 1,000 ML IV SCH (02:45)
[2021-06-15] MEDS ORDERED: ACETAMINOPHEN 325 MG TAB PO PRN (04:45)
[2021-06-15] MEDS ORDERED: LANOLIN/ZINC/DIMETHICONE (LANSINOH) 7 GM TP PRN (04:45)
[2021-06-15] MEDS ORDERED: BENZOCAINE/MENTHOL 20/0.5% TOP SPRAY 56 GM TP PRN (04:45)
--- NOTE | 2021-06-15 04:48 | Procedure Note ---
OB Delivery Note - Delivery Date of Delivery: 06/15/21 Surgeon: ELIJAH PARISI Coating Technician: MARY KATE PINA Estimated blood loss: 500cc - Vaginal Delivery presentation: vertex Delivery position: OA Intrapartum events: precipitous labor- <3hr Delivery induction: cervidil Delivery monitor: external FHT, external uterine Route of delivery: Delivery placenta: spontaneous Delivery cord: 3 umbilical vessels Episiotomy: none Delivery laceration: other (Left periurethral laceration) Delivery repair: vicryl (Repaired with 3-0 Vicryl by SHIREEN Hannah) Anesthesia: local Delivery comments: This patient was undergoing induction of labor with Cervidil. Labor progressed rapidly. Labor nurse on duty noticed that delivery was eminent. She called SHIREEN Hannah, and she was en route. A [facility] BL[facility] was called. Dr. Parisi and Dr. Mary Kate Pina arrived, and both delivered this . Placenta delivered spontaneou sly. As Dr. Pina began repairing the periurethral laceration with 3-0 Vicryl, SHIREEN Hannah arrived and took over care of this patient after accepting handoff. - Infant A at 1 minute: 8 at 5 minutes: 9 (Weight is pending per NICU.) Infant Gender: Male
--- NOTE | 2021-06-15 05:38 | Event Note ---
Date: 06/15/21 (0500) Mother and infant stable. Inner labial lacerations hemostatic, no repair initiated. Uterus firm @ U-1.
[2021-06-15] MEDS: HYDROcodone/ACETAMINOPHEN 5-325 MG TAB PO PRN ×2 (06:47→12:34)
[2021-06-15] MEDS: IBUPROFEN 800 MG TAB PO SCH ×4 (06:48→22:07)
[2021-06-15] MEDS: WITCH HAZEL/ GLYCERIN PAD TP PRN (11:47)
[2021-06-15] MEDS: DOCUSATE SODIUM 100 MG CAP PO SCH ×2 (11:48→22:38)
[2021-06-15] MEDS: PRENATAL VIT27-FE FUMARATE-FOLIC ACID VIT TAB PO SCH (11:48)
[2021-06-15 20:59] LABS: Hematocrit 26.7 % (30.3-42.9); Hemoglobin 8.7 gm/dl (10.1-14.3)
[2021-06-16] MEDS: IBUPROFEN 800 MG TAB PO SCH ×2 (04:24→19:24)
[2021-06-16] MEDS: PRENATAL VIT27-FE FUMARATE-FOLIC ACID VIT TAB PO SCH (10:00)
[2021-06-16] MEDS: DOCUSATE SODIUM 100 MG CAP PO SCH ×2 (10:00→21:40)
[2021-06-16] MEDS: HYDROcodone/ACETAMINOPHEN 5-325 MG TAB PO PRN ×2 (10:00→21:43)
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
[2021-06-17] MEDS: IBUPROFEN 800 MG TAB PO SCH ×3 (00:48→16:11)
[2021-06-17] MEDS: DOCUSATE SODIUM 100 MG CAP PO SCH (11:10)
[2021-06-17] MEDS: HYDROcodone/ACETAMINOPHEN 5-325 MG TAB PO PRN (11:10)
[2021-06-17] MEDS: PRENATAL VIT27-FE FUMARATE-FOLIC ACID VIT TAB PO SCH (11:10)
[2021-06-17] MEDS: WITCH HAZEL/ GLYCERIN PAD TP PRN (11:11)
[2021-06-17 20:26] VITALS: BP 114/75
== END 2021-06-17 20:59 | disposition home or self-care (01) | DRG 774 ==
LOC: LD 12:16 → UNDOADMIN 12:16 → LD 13:18 → OB 06-15 09:35
PROVIDERS: ADMIT Obstetrics & Gynecology; ATTEND Obstetrics & Gynecology
PROC: 10E0XZZ Delivery of Products of Conception, External Approach (ICD-10-PCS; principal; 2021-06-15)
PROC: 0UQMXZZ Repair Vulva, External Approach (ICD-10-PCS; 2021-06-15)
PROC: 3E0P7VZ Introduction of Hormone into Female Reproductive, Via Natural or Artificial Opening (ICD-10-PCS; 2021-06-15)
DX: O98.32 Other infections with a predominantly sexual mode of transmission complicating childbirth (principal); Z20.822 Contact with and (suspected) exposure to COVID-19; O99.824 Streptococcus B carrier state complicating childbirth; O75.3 Other infection during labor; A60.04 Herpesviral vulvovaginitis; O62.3 Precipitate labor; O71.82 Other specified trauma to perineum and vulva; Z3A.41 41 weeks gestation of pregnancy; Z37.0 Single live birth
CPT/HCPCS: 36415; 59200; 85014; 85018; 85027; 86850; 86900; 86901; G0378; J0595; J3010; J7120; U0003